=== PATIENT | male | born 1950 | race Caucasian/White ===

== ENCOUNTER 2017-12-19 11:51 | Day surgery (SDC) | payer OTHER, MEDICARE ==
[~2017-12-19 11:51] MED LIST: Acetaminophen/oxyCODONE 325-5 MG Tab PO ONE; Bupivacaine 25%/EPINEPHrine/PF 30 ML ONE; Clindamycin Phosphate in D5W 600 MG in Premix Bag 50 BAG IV ONE; Lactated Ringers 1,000 ML IV SCH
--- NOTE | 2017-12-19 12:26 | PCM.PREANE ---
Preanesthetic Assessment - Anesthesia/Transfusion/Family Hx Anesthesia History: Prior Anesthesia Without Reaction Family History of Anesthesia Reaction: No Transfusion History: No Prior Transfusion(s) - Review of Systems General: No Symptoms Pulmonary: No Symptoms Cardiovascular: No Symptoms Neurological: No Symptoms Other: Reports: None - Physical Assessment NPO Status Date: 12/18/17 Height: 1.83 m Weight: 95.254 kg ASA Class: 2 Mental Status: Alert & Oriented x3 Airway Class: Mallampati = 2 Dentition: Reports: [place](s) (central incisors) ROM/Head Extension: Full Lungs: Clear to Auscultation, Normal Respiratory Effort Cardiovascular: Regular Rate, Regular Rhythm - Allergies Allergies/Adverse Reactions: Allergies Allergy/AdvReac Type Severity Reaction Status Date / Time Penicillins Allergy Swelling Verified 12/17/17 12:42 - Acknowledgements Anesthesia Type Planned: MAC Pt an Appropriate Candidate for the Planned Anesthesia: Yes Alternatives and Risks of Anesthesia Discussed w Pt/Guardian: Yes Pt/Guardian Understands and Agrees with Anesthesia Plan: Yes Additional Comments: PMH: DM@, htn, HLD, smoker PreAnesthesia Questionnaire HEENT History: Reports: Hard of Hearing, Impaired Vision, Other (See Below) Other HEENT History: wears glasses, has eva hearing aids Cardiovascular History: Reports: High Cholesterol, Hypertension Gastrointestinal History: Reports: Colon Polyp, GERD Musculoskeletal History: Reports: None Neurological History: Reports: TIA Other Neuro History: "mild stroke 1 yr ago" Endocrine/Metabolic History: Reports: Diabetes, Type II - Past Surgical History Head Surgeries/Procedures: Reports: None GI Surgical History: Reports: Colonoscopy Musculoskeletal Surgical History: Reports: Arthroscopic Knee - SUBSTANCE USE Smoking Status *Q: Never Smoker Recreational Drug Use History: No - HOME MEDS Home Medications: Home Meds Gabapentin [Neurontin] 600 mg PO TID 12/17/17 [History] Hydrochlorothiazide 25 mg PO DAILY 12/17/17 [History] Losartan Potassium 25 mg PO DAILY 12/17/17 [History] Omeprazole 20 mg PO DAILY 12/17/17 [History] Polyethylene Glycol 3350 [MiraLAX] 1 capful PO DAILY 12/17/17 [History] atorvaSTATin Calcium [Atorvastatin Calcium] 20 mg PO DAILY 12/17/17 [History] levETIRAcetam [Keppra XR] 500 mg PO BID 12/17/17 [History] metFORMIN HCl [Metformin HCl] 0.5 tab PO BID 12/17/17 [History] - CURRENT (IN HOUSE) MEDS Current Meds: Current Medications Lactated Ringer's (Ringers, Lactated) 1,000 mls @ 125 mls/hr IV ASDIRECTED CALLIE Last Admin: 12/19/17 12:08 Dose: 125 mls/hr Discontinued Medications Clindamycin Phosphate 600 mg/ (Premix) 50 mls @ 100 mls/hr IV ONETIME ONE Stop: 12/19/17 05:29 Bupivacaine HCl/Epinephrine Bitart (Sensorc Mpf 0.25%-Epi 1:[id number]) Confirm Administered Dose 30 mls @ as directed .ROUTE .STK-MED ONE Stop: 12/19/17 10:53 Oxycodone/Acetaminophen (Percocet 325-5 Mg) 1 tab PO ONETIME ONE Stop: 12/19/17 10:17
[2017-12-19] MEDS ORDERED: Clindamycin Phosphate in D5W 600 MG in Premix Bag 50 BAG IV ONE ×2 (14:00)
[2017-12-19] MEDS ORDERED: Lidocaine 2% 5 ML SDV ONE ×2 (14:36→14:37)
[2017-12-19] MEDS ORDERED: Ketorolac 30 MG/ML SDV ONE ×2 (14:36→14:37)
[2017-12-19] MEDS ORDERED: Ondansetron 4 MG/2 ML SDV ONE (14:37)
[2017-12-19] MEDS ORDERED: fentaNYL 100 MCG/2 ML SDV ONE (14:38)
[2017-12-19] MEDS ORDERED: Midazolam 1 MG/ML 2 ML SDV ONE (14:39)
[2017-12-19] MEDS ORDERED: Propofol 200 MG/20 ML SDV ONE (14:39)
[2017-12-19] MEDS ORDERED: Dexamethasone 4 MG/ML 5 ML MDV ONE ×2 (15:31)
--- NOTE | 2017-12-19 16:08 | PCM.OPNOTE ---
- General Post-Op/Procedure Note Date of Surgery/Procedure: 12/19/17 Operative Procedure(s): skin lesions X4 excisional bx Findings: see dict [id number] Pre Op Diagnosis: skin lesions at back Post-Op Diagnosis: Same Anesthesia Technique: Moderate Sedation Primary Surgeon: Rickie Lan Pathology: 1) 2 lesions in 1 specimen, the medial is marked with stitchs; L shoulder 2) r shoulder 3) r lower back Complications: None Condition: Good
--- NOTE | 2017-12-19 16:32 | PCM.POSTAN ---
POST ANESTHESIA ASSESSMENT - MENTAL STATUS Mental Status: Alert, Oriented - RESPIRATORY Respiratory Status: Respiratory Rate WNL, Airway Patent, O2 Saturation Stable - CARDIOVASCULAR CV Status: Pulse Rate WNL, Blood Pressure Stable - GASTROINTESTINAL GI Status: No Symptoms - POST OP HYDRATION Hydration Status: Adequate & Stable
--- NOTE | 2017-12-19 16:40 | PCM48HPAN ---
Post Anesthesia Note - EVALUATION WITHIN 48HRS OF ANESTHETIC Vital Signs in Normal Range: Yes Patient Participated in Evaluation: Yes Respiratory Function Stable: Yes Airway Patent: Yes Cardiovascular Function Stable: Yes Hydration Status Stable: Yes Pain Control Satisfactory: Yes Nausea and Vomiting Control Satisfactory: Yes Mental Status Recovered: Yes
--- NOTE | 2017-12-19 22:51 | OR ---
SURGEON: Rickie Lan MD DATE OF PROCEDURE: 12/19/2017 PREOPERATIVE DIAGNOSIS: Skin lesions x4 at the back. POSTOPERATIVE DIAGNOSIS: Skin lesions x4 at the back. PROCEDURE PERFORMED: Excision biopsy of all 4 skin lesion. COMPLICATIONS: None. FINDING: The 4 lesions on the back. They are all excised and sent for pathology. PROCEDURE IN DETAIL: The patient was taken to the operating room and placed in the supine position. Upon induction of mild general sedation, the patient repositioned to prone position with face mask, very mild sedation and the patient's back was prepped and draped in a sterile fashion and first time-out was being called, the patient identified, procedure identified and antibiotic was given, procedure then started. The patient was prepped and draped in a sterile fashion. First attention to the left upper shoulder, the 2 lesions were closed together, decided to make a fish-mouth incision and sent both of them to together to pigment the lesion on the left upper shoulder, excised it together, and put a stitch on the medial aspect of specimen and good hemostasis achieved by use of electrocautery. The skin incision in this case is about 3.1 x 2 cm, and using skin scalpel, the incision of deep down to the subcutaneous fat and the specimen was sent to Pathology with a jarrod on the medial aspect of the lesion. Again good hemostasis was achieved by using electrocautery and wound was closed by use of 3-0 Ethilon running baseball stitches and followed by appropriate dressing. Attention now turned to the right shoulder. There was a small pigmented lesion again using a skin scalpel a fish-mouth incision was made and sent for pathology and closed with 2 single interrupted stitches using 3-0 Ethilon. Attention now turned to the last one, which was on the right lower back almost like a felt line. Again, local anesthetic infiltrated and then using a skin scalpel was excised and sent to Pathology. The excision down the cutaneous fat and the wound was closed with 3-0 Ethilon running baseball stitches. These were then followed by appropriate dressing. The patient was awakened, transferred to recovery room in hemodynamically stable condition. The patient tolerated the procedure well. There were no intraoperative complications. Dr. Lan was present throughout the procedure. EDILMA / JAEL /[id number]
--- NOTE | 2018-02-27 10:49 | OR ---
SURGEON: Rickie Lan MD DATE OF PROCEDURE: ADDENDUM: Addendum to the previous dictated operative note. The first incision with two lesion together, incision is 3.1 x 2 cm, the right shoulder one and the incision was 3.1 x 2 cm, and then the last one is right lower back, the incision is 3.1 x 2.5 cm. EDILMA / JAEL /[id number]
--- NOTE | 2018-02-27 10:52 | OR ---
SURGEON: Rickie Lan MD DATE OF PROCEDURE: ADDENDUM: Addendum to the previous dictation. Three lesions, the first one was 3.1 x 2 cm, second one was 3.1 x 2 cm, and the last one was 11 x 1.5 cm. EDILMA ELDER /[id number]
== END 2017-12-19 16:52 | disposition home or self-care (01) ==
LOC: MW.SDS 11:51
PROVIDERS: ATTEND Surgery
DX: L30.9 Dermatitis, unspecified (principal); D22.61 Melanocytic nevi of right upper limb, including shoulder; Z88.0 Allergy status to penicillin
CPT/HCPCS: 11404; 82962; 88305; J1100; J1885; J2250; J2405; J3010; J7120; 00300; J2704